=== PATIENT | female | born 1970 | race Caucasian/White ===

== ENCOUNTER 2021-07-25 19:35 | Emergency (ER) | payer MEDICARE, OTHER ==
[~2021-07-25] VITALS: Ht 167.6 cm; Wt 40.8 kg
[2021-07-25 19:58] VITALS: BP 170/108
== END 2021-07-26 00:14 | disposition left against medical advice (07) ==
LOC: ER 19:38
DX: Z01.89 Encounter for other specified special examinations (principal); Z53.21 Procedure and treatment not carried out due to patient leaving prior to being seen by health care provider

== ENCOUNTER 2021-11-04 19:26 | Emergency (ER) | payer MEDICARE, OTHER ==
[~2021-11-04] VITALS: Ht 167.6 cm; Wt 44.5 kg
[2021-11-04 19:43] VITALS: BP 133/88
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
== END 2021-11-04 21:29 | disposition left against medical advice (07) ==
LOC: EEVIPCON 19:27 → ER 19:27
DX: R21 Rash and other nonspecific skin eruption (principal); Z53.21 Procedure and treatment not carried out due to patient leaving prior to being seen by health care provider
CPT/HCPCS: 36415; 87491

== ENCOUNTER 2021-11-27 00:59 | Emergency (ER) | payer MEDICARE, OTHER ==
[~2021-11-27] VITALS: Ht 167.6 cm; Wt 44.5 kg
[2021-11-27 05:03] LABS: BASOPHILS % (AUTO) 0.1 % (0-1); EOSINOPHILS % (AUTO) 0.1 % (0-6); HEMOGLOBIN 11.6 g/dl (12.0-16.0); LYMPHOCYTES # (AUTO) 1.2 X10'3 (1.1-4.8); LYMPHOCYTES % (AUTO) 13.5 % (21-51); MEAN CORPUSCULAR HEMOGLOBIN 33.5 PG (27.0-31.0); MEAN CORPUSCULAR HGB CONC 34.3 g/dL (33.0-36.5); MEAN CORPUSCULAR VOLUME 97.8 FL (78-98); MEAN PLATELET VOLUME 7.2 FL (7.4-10.4); MONOCYTES # (AUTO) 0.2 X10'3 (0-0.9); MONOCYTES % (AUTO) 1.8 % (2-12); NEUTROPHILS # (AUTO) 7.8 X10'3 (1.8-7.7); NEUTROPHILS % (AUTO) 84.5 % (42-75); PLATELET COUNT 231 X10'3 (140-440); RED BLOOD COUNT 3.47 X10'6 (4.20-5.60); RED CELL DISTRIBUTION WIDTH 14.8 % (11.5-14.5); WHITE BLOOD COUNT 9.2 X10'3 (4.5-11.0)
[2021-11-27 05:11] VITALS: BP 112/76
[2021-11-27 05:18] LABS: ALANINE AMINOTRANSFERASE 20 U/L (12-78); ALBUMIN 2.9 G/DL (3.4-5.0); ALBUMIN/GLOBULIN RATIO 0.8 (1.1-1.5); ALKALINE PHOSPHATASE 111 IU/L (46-116); ANION GAP 8 (8-16); ASPARTATE AMINO TRANSFERASE 14 U/L (10-37); BILIRUBIN,TOTAL 0.4 MG/DL (0.1-1.0); BLOOD UREA NITROGEN 21 MG/DL (7-18); BUN/CREATININE RATIO 20.6 (6.6-38.0); CHLORIDE 102 MMOL/L (99-107); CREATININE 1.02 MG/DL (0.40-0.90); GLUCOSE 211 MG/DL (70-104); POTASSIUM 3.1 MMOL/L (3.5-5.1); SODIUM 135 MMOL/L (135-145); TOTAL CARBON DIOXIDE 25.4 MMOL/L (24-32); TOTAL PROTEIN 6.6 G/DL (6.4-8.2); eGFR 57 ML/MIN
[2021-11-27] MEDS ORDERED: potassium Cl 20 mEq SR tablet PO STA (05:28)
== END 2021-11-27 05:49 | disposition home or self-care (01) ==
LOC: ER 01:00
DX: R07.9 Chest pain, unspecified (principal); T50.905A Adverse effect of unspecified drugs, medicaments and biological substances, initial encounter; F41.9 Anxiety disorder, unspecified; Z88.5 Allergy status to narcotic agent; Y92.89 Other specified places as the place of occurrence of the external cause; R20.8 Other disturbances of skin sensation
CPT/HCPCS: 71045; 80053; 84145; 84484; 85025; 93005; 99285

== ENCOUNTER 2021-12-19 11:55 | Emergency (ER) | payer MEDICARE, OTHER ==
[~2021-12-19] VITALS: Ht 167.6 cm; Wt 41.8 kg
[2021-12-19 12:26] VITALS: BP 176/111
[2021-12-19] MEDS ORDERED: normal saline 1000ml 1,000 ML IV ONE (16:45)
[2021-12-19 17:00] LABS: CLARITY,URINE SLIGHTLY CLOUDY (Clear); COLOR,URINE YELLOW (Yellow); GLUCOSE, URINE NEGATIVE (Neg); KETONES,URINE TRACE mg/dl (Neg); LEUKOCYTE ESTERASE ,URINE NEGATIVE (Neg); NITRITES, URINE POSITIVE (Neg); OCCULT BLOOD,URINE SMALL (Neg); PH,URINE 6.5 (4.8-8.0); PROTEIN,URINE NEGATIVE (Neg); UROBILINOGEN,URINE 0.2 E.U/dL (0.2-1.0)
[2021-12-19 17:20] LABS: UA COLLECTION TYPE CLN CATCH MIDSTREAM
[2021-12-19 17:21] LABS: BACTERIA,URINE 4+ /HPF (Neg); MUCUS STRANDS FEW /LPF (Neg); RBC,URINE 0-2 /HPF (0-2); SQUAMOUS EPITHELIAL CELL,UR FEW /LPF (FEW); WBC,URINE 0-4 /HPF (0-4)
[2021-12-19 17:22] LABS: BASOPHILS % (AUTO) 0.3 % (0-1); EOSINOPHILS # (AUTO) 0.1 X10'3 (0-0.9); EOSINOPHILS % (AUTO) 0.5 % (0-6); HEMATOCRIT 41.4 % (35.0-45.0); HEMOGLOBIN 14.4 g/dl (12.0-16.0); LYMPHOCYTES # (AUTO) 2.7 X10'3 (1.1-4.8); LYMPHOCYTES % (AUTO) 18.4 % (21-51); MEAN CORPUSCULAR HEMOGLOBIN 33.6 PG (27.0-31.0); MEAN CORPUSCULAR HGB CONC 34.8 g/dL (33.0-36.5); MEAN CORPUSCULAR VOLUME 96.5 FL (78-98); MEAN PLATELET VOLUME 7.3 FL (7.4-10.4); MONOCYTES # (AUTO) 0.7 X10'3 (0-0.9); NEUTROPHILS % (AUTO) 75.8 % (42-75); PLATELET COUNT 389 X10'3 (140-440); RED BLOOD COUNT 4.28 X10'6 (4.20-5.60); RED CELL DISTRIBUTION WIDTH 15.3 % (11.5-14.5); WHITE BLOOD COUNT 14.5 X10'3 (4.5-11.0)
[2021-12-19 17:28] LABS: ALANINE AMINOTRANSFERASE 13 U/L (12-78); ALBUMIN 3.9 G/DL (3.4-5.0); ALBUMIN/GLOBULIN RATIO 0.8 (1.1-1.5); ALKALINE PHOSPHATASE 106 IU/L (46-116); ANION GAP 8 (8-16); ASPARTATE AMINO TRANSFERASE 15 U/L (10-37); BILIRUBIN,TOTAL 0.4 MG/DL (0.1-1.0); BLOOD UREA NITROGEN 14 MG/DL (7-18); BUN/CREATININE RATIO 18.2 (6.6-38.0); CALCIUM 10.7 MG/DL (8.5-10.1); CHLORIDE 101 MMOL/L (99-107); CREATININE 0.77 MG/DL (0.40-0.90); GLUCOSE 111 MG/DL (70-104); POTASSIUM 3.6 MMOL/L (3.5-5.1); SODIUM 140 MMOL/L (135-145); TOTAL CARBON DIOXIDE 30.7 MMOL/L (24-32); TOTAL PROTEIN 8.5 G/DL (6.4-8.2); eGFR 78 ML/MIN
[2021-12-19 17:31] LABS: LIPASE 655 U/L (73-393); MAGNESIUM 2.1 MG/DL (1.5-2.4)
[2021-12-19] MEDS ORDERED: ketorolac trometh. 30mg/ml inj. IM ONE (18:10)
== END 2021-12-19 19:26 | disposition home or self-care (01) ==
LOC: ER 11:56
DX: N30.00 Acute cystitis without hematuria (principal); K86.1 Other chronic pancreatitis; F41.9 Anxiety disorder, unspecified; Z88.5 Allergy status to narcotic agent
CPT/HCPCS: 36415; 71045; 80053; 81001; 83690; 83735; 84484; 85025; 87077; 87088; 87186; 93005; 96360; 96361; 96372; 99285; J1885; J7030

== ENCOUNTER 2021-12-28 10:57 | Emergency (ER) | payer MEDICARE, OTHER ==
[~2021-12-28] VITALS: Ht 167.6 cm; Wt 41.8 kg
[2021-12-28 11:43] LABS: URINE HCG NEGATIVE (NEG)
[2021-12-28] MEDS ORDERED: ketorolac trometh. 30mg/ml inj. IV ONE (11:45)
[2021-12-28] MEDS ORDERED: ringers solution, lactated 1000ml IV soln IV ONE (11:45)
[2021-12-28 11:49] LABS: BASOPHILS % (AUTO) 0.2 % (0-1); EOSINOPHILS # (AUTO) 0.1 X10'3 (0-0.9); EOSINOPHILS % (AUTO) 0.7 % (0-6); HEMOGLOBIN 12.7 g/dl (12.0-16.0); LYMPHOCYTES # (AUTO) 2.1 X10'3 (1.1-4.8); MEAN CORPUSCULAR HEMOGLOBIN 32.5 PG (27.0-31.0); MEAN CORPUSCULAR HGB CONC 33.3 g/dL (33.0-36.5); MEAN CORPUSCULAR VOLUME 97.6 FL (78-98); MEAN PLATELET VOLUME 7.2 FL (7.4-10.4); MONOCYTES # (AUTO) 0.8 X10'3 (0-0.9); MONOCYTES % (AUTO) 5.1 % (2-12); NEUTROPHILS # (AUTO) 12.9 X10'3 (1.8-7.7); PLATELET COUNT 325 X10'3 (140-440); RED BLOOD COUNT 3.89 X10'6 (4.20-5.60); RED CELL DISTRIBUTION WIDTH 14.8 % (11.5-14.5)
[2021-12-28 11:56] LABS: CLARITY,URINE CLEAR (Clear); COLOR,URINE YELLOW (Yellow); GLUCOSE, URINE NEGATIVE (Neg); KETONES,URINE NEGATIVE (Neg); LEUKOCYTE ESTERASE ,URINE NEGATIVE (Neg); NITRITES, URINE NEGATIVE (Neg); OCCULT BLOOD,URINE SMALL (Neg); PH,URINE 5.5 (4.8-8.0); PROTEIN,URINE NEGATIVE (Neg); UROBILINOGEN,URINE 0.2 E.U/dL (0.2-1.0)
[2021-12-28 11:57] LABS: UA COLLECTION TYPE CLN CATCH MIDSTREAM
[2021-12-28 12:06] LABS: BACTERIA,URINE FEW /HPF (Neg); RBC,URINE 0-2 /HPF (0-2); WBC,URINE 0-4 /HPF (0-4)
[2021-12-28 12:07] LABS: SQUAMOUS EPITHELIAL CELL,UR MODERATE /LPF (FEW)
[2021-12-28 12:07] LABS: ALANINE AMINOTRANSFERASE 23 U/L (12-78); ALBUMIN 3.6 G/DL (3.4-5.0); ALBUMIN/GLOBULIN RATIO 0.8 (1.1-1.5); ALKALINE PHOSPHATASE 90 IU/L (46-116); ANION GAP 11 (8-16); ASPARTATE AMINO TRANSFERASE 15 U/L (10-37); BILIRUBIN,TOTAL 0.4 MG/DL (0.1-1.0); BLOOD UREA NITROGEN 29 MG/DL (7-18); BUN/CREATININE RATIO 18.4 (6.6-38.0); CALCIUM 9.9 MG/DL (8.5-10.1); CHLORIDE 104 MMOL/L (99-107); CREATININE 1.58 MG/DL (0.40-0.90); GLUCOSE 126 MG/DL (70-104); LIPASE 587 U/L (73-393); POTASSIUM 4.8 MMOL/L (3.5-5.1); SODIUM 138 MMOL/L (135-145); TOTAL CARBON DIOXIDE 22.9 MMOL/L (24-32); TOTAL PROTEIN 7.9 G/DL (6.4-8.2); eGFR 34 ML/MIN
[2021-12-28] MEDS ORDERED: oxyCODONE IR 5mg (immed. release) tablet PO ONE (15:15)
[2021-12-28 15:29] VITALS: BP 130/81
[2021-12-28] MEDS ORDERED: OXYC-481 PO (18:22)
== END 2021-12-28 18:46 | disposition home or self-care (01) ==
LOC: ER 10:57
DX: K86.1 Other chronic pancreatitis (principal); E86.0 Dehydration; F41.9 Anxiety disorder, unspecified; Z72.89 Other problems related to lifestyle; Z88.8 Allergy status to other drugs, medicaments and biological substances; Z79.899 Other long term (current) drug therapy
CPT/HCPCS: 36415; 80053; 81001; 81025; 83690; 85025; 96361; 96374; 99285; J1885; J7120; J7030